=== PATIENT | male | born 1990 | race American Indian/Alaskan Native ===

== ENCOUNTER 2021-11-21 00:19 | Emergency (ER) | payer BC ==
[2021-11-21 01:20] VITALS: BP 135/65
--- NOTE | 2021-11-21 02:08 | Emergency Department Report ---
ED General Adult HPI - General Chief complaint: Weakness Stated complaint: WEAKNESS Source: patient, EMS Mode of arrival: Stretcher Limitations: No Limitations - History of Present Illness Initial comments: Patient is a 31-year-old -[place] male with no past medical history who presents to the ED with complaint of acute onset persistent generalized weakness and fatigue for the last 1 week, worse in the last 2 days. Patient states that about 6 hours ago he got up to go to the bathroom and shower prior to going to work. Patient states that while in the bathroom he is felt diaphoretic but went into the bathtub and said soaking in water and thereafter his found him sitting in the bathtub with his eyes closed. Patient states that he had fallen asleep on the day but because of generalized fatigue and weakness. Patient states that he can hardly sleep because he works 10-hour shifts and when he gets back home he is involved in family chores and duties and most of the time he can hardly get 2 hours of sleep prior to going back to work again. Patient also states that he usually smokes marijuana regularly. Patient denies dizziness, syncope, chest pain, shortness of breath, headache, traumatic injury, nausea and vomiting, loss of consciousness, seizures, cough, abdominal pain, sore throat or heavy lifting. MD Complaint: Generalized weakness and fatigue -: Sudden, hour(s) (3) Radiation: non-radiation Severity scale (0 -10): 0 Consistency: now resolved Improves with: none Worsens with: none Associated Symptoms: denies other symptoms, weakness, other (Generalized fatigue). denies: confusion, chest pain, cough, diaphoresis, fever/chills, loss of appetite, malaise, nausea/vomiting, rash, seizure, shortness of breath, syncope Treatments Prior to Arrival: none - Related Data Allergies Allergy/AdvReac Type Severity Reaction Status Date / Time No Known Allergies Allergy Unverified 11/21/21 01:20 ED Review of Systems ROS: Stated complaint: WEAKNESS Other details as noted in HPI Constitutional: malaise, weakness, other (Generalized fatigue). denies: chills, fever Eyes: denies: eye pain, eye discharge, vision change ENT: denies: ear pain, throat pain Respiratory: denies: cough, shortness of breath, wheezing Cardiovascular: denies: chest pain, palpitations Endocrine: no symptoms reported Gastrointestinal: denies: abdominal pain, nausea, diarrhea Genitourinary: denies: urgency, dysuria Musculoskeletal: denies: back pain, joint swelling, arthralgia Skin: denies: rash, lesions Neurological: denies: headache, weakness, paresthesias Psychiatric: denies: anxiety, depression Hematological/Lymphatic: denies: easy bleeding, easy bruising ED Past Medical Hx - Past Medical History Previous Medical History?: No - Surgical History Past Surgical History?: No - Social History Smoking Status: Current Every Day Smoker Substance Use Type: Marijuana ED Physical Exam - General Limitations: No Limitations General appearance: alert, in no apparent distress - Head Head exam: Present: atraumatic, normocephalic, normal inspection - Eye Eye exam: Present: normal appearance, PERRL, EOMI Pupils: Present: normal accommodation - ENT ENT exam: Present: normal exam, normal orophraynx, mucous membranes moist, TM's normal bilaterally, normal external ear exam - Neck Neck exam: Present: normal inspection, full ROM. Absent: tenderness - Respiratory Respiratory exam: Present: normal lung sounds bilaterally. Absent: respiratory distress, wheezes, rales, rhonchi, chest wall tenderness, accessory muscle use, decreased breath sounds, prolonged expiratory - Cardiovascular Cardiovascular Exam: Present: regular rate, normal rhythm, normal heart sounds. Absent: systolic murmur, diastolic murmur, rubs, gallop - GI/Abdominal GI/Abdominal exam: Present: soft, normal bowel sounds. Absent: tenderness, guarding, rebound, hyperactive bowel sounds, hypoactive bowel sounds, organomegaly, mass - Extremities Exam Extremities exam: Present: normal inspection, full ROM, normal capillary refill - Back Exam Back exam: Present: normal inspection, full ROM. Absent: tenderness, CVA tenderness (R), CVA tenderness (L), muscle spasm, paraspinal tenderness - Neurological Exam Neurological exam: Present: alert, oriented X3, CN II-XII intact, normal gait, reflexes normal - Psychiatric Psychiatric exam: Present: normal affect, normal mood - Skin Skin exam: Present: warm, dry, intact, normal color. Absent: rash ED Course Vital Signs 11/21/21 01:07 Temperature 98 F Pulse Rate 65 Respiratory 18 Rate Blood Pressure 135/65 O2 Sat by Pulse 100 Oximetry ED Medical Decision Making - Medical Decision Making This is a 31-year-old -[place] male with no past medical history who presents to the ED with complaint of acute onset persistent generalized weakness and fatigue for the last 1 week, worse in the last 2 days. Patient states that about 6 hours ago he got up to go to the bathroom and shower prior to going to work. Patient states that while in the bathroom he is felt diaphoretic but went into the bathtub and said soaking in water and thereafter his found him sitting in the bathtub with his eyes closed. Patient states that he had fallen asleep on the day but because of generalized fatigue and weakness. Patient states that he can hardly sleep because he works 10-hour shifts and when he gets back home he is involved in family chores and duties and most of the time he can hardly get 2 hours of sleep prior to going back to work again. Patient also states that he usually smokes marijuana regularly. In the ED, patient is alert and oriented x3 and is not in any distress. Patient is hemodynamically stable in the ED. Patient was discharged home advised to drink plenty of fluids and follow-up with his primary care physician in 5 to 7 days for reevaluation or return to the ED immediately if symptoms get worse. - Differential Diagnosis Generalized weakness; fatigue; anxiety; insomnia Critical care attestation.: If time is entered above; I have spent that time in minutes in the direct care of this critically ill patient, excluding procedure time. ED Disposition Clinical Impression: Generalized weakness, Fatigue due to sleep pattern disturbance Disposition: 01 HOME / SELF CARE / HOMELESS Is pt being admited?: No Does the pt Need Aspirin: No Condition: Stable Instructions: Fatigue, Weakness, [id number] Additional Instructions: Drink plenty of fluids, get plenty of rest, follow-up with your primary care physician in 7 to 10 days for reevaluation. Return to the ED immediately if symptoms get worse. Referrals: [facility] [Provider Group] - 7-10 days Forms: Work/School Release Form(ED) Time of Disposition: 02:08 Print Language: JAPANESE
== END 2021-11-21 02:56 | disposition home or self-care (01) ==
LOC: ED 00:19
DX: R53.1 Weakness (principal); R53.83 Other fatigue; F17.200 Nicotine dependence, unspecified, uncomplicated; F12.90 Cannabis use, unspecified, uncomplicated
CPT/HCPCS: 99283